=== PATIENT | female | born 1970 | race Caucasian/White ===

== ENCOUNTER 2019-05-18 11:55 | Emergency (ER) | payer BC ==
--- NOTE | 2019-05-18 14:47 | ED ---
Lower Extremity - HPI Summary HPI Summary: Patient is a 48-year-old female who presents to the ED with left lateral ankle pain after slipping and falling today. Patient is endorsing pain to the lateral side of the ankle and some to the dorsum of the foot. She denies any pain to the medial side of the ankle. Denies any pain to the lower extremity otherwise. Denies numbness or tingling, color temperature changes. She states she felt a "snap" and knew that he had fractured. She has never injured this ankle in the past. She denies taking any medications prior to arrival. - History of Current Complaint Chief Complaint: EDExtremityLower Stated Complaint: POSSIBLE BROKEN ANKLE PER EMS Time Seen by Provider: 05/18/19 13:17 Hx Obtained From: Patient Onset of Pain: Hours Onset/Duration: Hours Severity Initially: Moderate Severity Currently: Moderate Pain Intensity: 4 Pain Scale Used: 0-10 Numeric Timing: Constant Location: Is Discrete @ - left lateral ankle pain Character Of Pain: Aching Associated Signs And Symptoms: Positive: Swelling. Negative: Redness, Bruising Aggravating Factor(s): Standing, Ambulation Alleviating Factor(s): Rest Able to Bear Weight: No - Risk Factors Gout Risk Factors: Negative DVT Risk Factors: Negative PMH/Surg Hx/FS Hx/Imm Hx Previously Healthy: Yes - Immunization History Hx Pertussis Vaccination: No Immunizations Up to Date: Yes Infectious Disease History: No Infectious Disease History: Denies: Traveled Outside the [place] in Last 30 Days - Social History Occupation: Employed Full-time Lives: With Family Alcohol Use: None Hx Substance Use: No Substance Use Type: Reports: None Hx Tobacco Use: Yes Smoking Status (MU): Former Smoker Review of Systems Constitutional: Negative Negative: Fever, Chills, Fatigue, Skin Diaphoresis Negative: Palpitations, Chest Pain Negative: Shortness Of Breath, Cough Genitourinary: Negative Positive: no symptoms reported, see HPI Positive: Arthralgia - left lateral ankle pain. Negative: Myalgia Skin: Negative Neurological: Negative All Other Systems Reviewed And Are Negative: Yes Physical Exam Triage Information Reviewed: Yes Vital Signs On Initial Exam: Initial Vitals Temp Pulse Resp BP Pulse Ox 98.1 F 107 18 150/108 95 05/18/19 11:59 05/18/19 11:59 05/18/19 11:59 05/18/19 11:59 05/18/19 11:59 Vital Signs Reviewed: Yes Appearance: Positive: Well-Appearing, Well-Nourished Skin: Positive: Skin Color Reflects Adequate Perfusion Head/Face: Positive: Normal Head/Face Inspection Eyes: Positive: EOMI, Conjunctiva Clear Neck: Positive: Supple, No Lymphadenopathy Respiratory/Lung Sounds: Positive: Clear to Auscultation, Breath Sounds Present Cardiovascular: Positive: RRR, Pulses are Symmetrical in both Upper and Lower Extremities Musculoskeletal: Positive: Pain @ - left lateral ankle pain Neurological: Positive: Speech Normal Psychiatric: Positive: Affect/Mood Appropriate AVPU Assessment: Alert Diagnostics - Vital Signs Vital Signs Temp Pulse Resp BP Pulse Ox 05/18/19 14:19 98.6 F 110 16 123/87 92 05/18/19 11:59 98.1 F 107 18 150/108 95 - Laboratory Lab Statement: Any lab studies that have been ordered have been reviewed, and results considered in the medical decision making process. Lower Extremity Course/Dx - Course Course Of Treatment: The patient's evaluated for left lateral ankle pain and injury. There is swelling to the lateral side of the ankle. Patient is endorsing pain with flexion and extension. X-ray obtained which shows an oblique fracture at the left ankle. Widening of the ankle mortisse. Examination reveals no pain to the left lower extremity otherwise on deep palpation and flexion and extension to the knee without discomfort. No bruisin to the lower ext. Pain to the lateral ankle only. Sugar tong splint applied using plaster. Patient tolerated well. NV intact. Denies pain currently. Crutches given. She will follow up with ortho. - Diagnoses Provider Diagnoses: Left fibular fracture Discharge - Sign-Out/Discharge Documenting (check all that apply): Patient Departure Patient Received Moderate/Deep Sedation with Procedure: No - Discharge Plan Condition: Stable Disposition: HOME Patient Education Materials: Ankle Fracture (ED) Referrals: Dipak Licea MD [Medical Doctor] - Zeynep Cole NP [Primary Care Provider] - Additional Instructions: oblique fracture of tthe fibula Please follow up with ortho non weight bearing crutches for ambulation ibuprofen 600mg three times daily as needed for discomfort - Billing Disposition and Condition Condition: STABLE Disposition: Home
== END 2019-05-18 14:19 | disposition home or self-care (01) ==
LOC: ED 11:55
DX: Z87.891 Personal history of nicotine dependence (principal); S82.832A Other fracture of upper and lower end of left fibula, initial encounter for closed fracture; W01.0XXA Fall on same level from slipping, tripping and stumbling without subsequent striking against object, initial encounter
CPT/HCPCS: 99282